=== PATIENT | female | born 1965 | race Caucasian/White ===

== ENCOUNTER 2018-10-28 12:16 | Emergency (ER) | payer MEDICAID ==
[2018-10-28 12:36] VITALS: BMI 35.3
[2018-10-28 12:39] VITALS: RESP 20; O2SAT 97
[2018-10-28 14:17] LABS: BASO % 0.8 % (0.0-2.0); EOS # 0.1 K/uL (0.0-0.7); EOS % 1.5 % (0.0-4.0); HEMOGLOBIN 12.7 g/dL (11.0-16.0); LYMPH # 1.7 K/uL (1.0-4.3); LYMPH % 31.4 % (20.0-40.0); MEAN CELL VOLUME 91.9 fL (81.0-99.0); MEAN CORPUSCULAR HEMOGLOBIN 30.3 pg (27.0-31.0); MEAN PLATELET VOLUME 9.7 fL (7.2-11.7); MONO # 0.3 K/uL (0.0-0.8); MONO % 5.3 % (0.0-10.0); NEUT # 3.3 K/uL (1.8-7.0); NRBC % 0.1 % (0.0-2.0); RBC 4.18 Mil/uL (3.80-5.20); RED CELL DISTRIBUTION WIDTH 14.8 % (11.5-14.5); WHITE BLOOD COUNT 5.5 K/uL (4.8-10.8)
[2018-10-28 14:24] LABS: HCG,QUALITATIVE URINE NEGATIVE (NEGATIVE); SQUAMOUS EPITHIAL 2 /hpf (0-5); URINE BILIRUBIN NEGATIVE (NEGATIVE); URINE BLOOD 3+ (NEGATIVE); URINE CLARITY Hazy (Clear); URINE COLOR Amber (YELLOW); URINE GLUCOSE (UA) NORMAL (Normal); URINE LEUKOCYTE ESTERASE NEG Leu/uL (Negative); URINE PROTEIN 2+ mg/dL (NEGATIVE); URINE UROBILINOGEN NORMAL mg/dL (0.2-1.0)
[2018-10-28 14:31] LABS: ALB/GLOB RATIO 1.4 (1.0-2.1); ALBUMIN 4.6 g/dL (3.5-5.0); ALT/SGPT 17 U/L (9-52); AST/SGOT 23 U/L (14-36); BLOOD UREA NITROGEN 17 mg/dL (7-17); CALCIUM 9.1 mg/dl (8.6-10.4); GFR NON-AFRICAN AMERICAN > 60; LIPASE 32 U/L (23-300)
--- NOTE | 2018-10-28 15:25 | C.PDOC ---
History Of Present Illness 52 y/o F c PMHx fibroids p/w vaginal bleeding x 4 days. Changing pad every 2-3 hours. Denies palpitations, lightheadedness, chest pain, dyspnea. Had US 2 years ago which showed fibroids but never followed up with OBGYN. Time Seen by Provider: 10/28/18 13:26 Chief Complaint (Nursing): Female Genitourinary Past Medical History Vital Signs: Last Vital Signs Temp 98.1 F 10/28/18 12:36 Pulse 89 10/28/18 12:36 Resp 20 10/28/18 12:36 BP 126/84 10/28/18 12:36 Pulse Ox 97 10/28/18 12:36 Family History: States: No Known Family Hx - Social History Hx Alcohol Use: No Hx Substance Use: No - Immunization History Hx Tetanus Toxoid Vaccination: No Hx Influenza Vaccination: No Hx Pneumococcal Vaccination: No Review Of Systems Except As Marked, All Systems Reviewed And Found Negative. Cardiovascular: Negative for: Chest Pain Respiratory: Negative for: Shortness of Breath Physical Exam - Physical Exam Appears: No Acute Distress Skin: Normal Color Head: Atraumatic, Normacephalic Eye(s): bilateral: PERRL Oral Mucosa: Moist Neck: Supple Cardiovascular: Rhythm Regular Respiratory: Normal Breath Sounds, No Accessory Muscle Use Gastrointestinal/Abdominal: Soft, No Tenderness Back: No CVA Tenderness Extremity: No Tenderness Pulses: Left Radial: Normal, Right Radial: Normal Neurological/Psych: Normal Speech, Normal Cognition ED Course And Treatment - Laboratory Results Result Diagrams: 10/28/18 14:14 10/28/18 14:14 Lab Results: Total Bilirubin 0.4 mg/dL (0.2-1.3) 10/28/18 14:14 AST 23 U/L (14-36) 10/28/18 14:14 ALT 17 U/L (9-52) 10/28/18 14:14 Alkaline Phosphatase 69 U/L (38-126) 10/28/18 14:14 Total Protein 7.9 g/dL (6.3-8.3) 10/28/18 14:14 Albumin 4.6 g/dL (3.5-5.0) 10/28/18 14:14 Globulin 3.3 gm/dL (2.2-3.9) 10/28/18 14:14 Albumin/Globulin Ratio 1.4 (1.0-2.1) 10/28/18 14:14 Lipase 32 U/L (23-300) 10/28/18 14:14 Urine Color Amanda (YELLOW) 10/28/18 14:14 Urine Clarity Hazy (Clear) 10/28/18 14:14 Urine pH 5.0 (5.0-8.0) 10/28/18 14:14 Ur Specific Cartwright 1.024 (1.003-1.030) 10/28/18 14:14 Urine Protein 2+ mg/dL (NEGATIVE) H 10/28/18 14:14 Urine Glucose (UA) Normal mg/dL (Normal) 10/28/18 14:14 Urine Ketones Negative mg/dL (NEGATIVE) 10/28/18 14:14 Urine Blood 3+ (NEGATIVE) H 10/28/18 14:14 Urine Nitrate Negative (NEGATIVE) 10/28/18 14:14 Urine Bilirubin Negative (NEGATIVE) 10/28/18 14:14 Urine Urobilinogen Normal mg/dL (0.2-1.0) 10/28/18 14:14 Ur Leukocyte Esterase Neg Joana/uL (Negative) 10/28/18 14:14 Urine WBC (Auto) 19 /hpf (0-5) H 10/28/18 14:14 Urine RBC (Auto) 6844 /hpf (0-3) H 10/28/18 14:14 Ur Squamous Epith Cells 2 /hpf (0-5) 10/28/18 14:14 Urine HCG, Qual Negative (NEGATIVE) 10/28/18 14:14 Urine HCG, Qual Negative (NEGATIVE) 10/28/18 14:14 O2 Sat by Pulse Oximetry: 97 Medical Decision Making Medical Decision Making: Hb normal. Hemodynamically stable. Will discharge, f/u OBGYN, return to ED for worsening pain, lightheadedness, palpitations, dyspnea, or any other problem. Disposition - Disposition Referrals: Jennifer Villegas DO [Staff Provider] - Disposition: HOME/ ROUTINE Disposition Time: 17:09 Condition: STABLE Additional Instructions: FINDINGS: UTERUS: Measures 12.3 x 7.0 x 7.6 cm. Anteverted. 1.6 x 1.2 x 1.7 cm anterior mid uterine fibroid and 2.7 x 2.1 x 2.7 cm subserosal fundal fibroid. ENDOMETRIUM: Measures 7 mm in diameter. CERVIX: Cervix length measures approximately 3.7 cm. RIGHT OVARY: Measures 2.6 x 1.6 x 2.8 cm. Blood flow is demonstrated. 1.6 x 1.5 x 1.8 complex follicle/cyst. LEFT OVARY: Not visualized. FREE FLUID: No significant free fluid noted. OTHER FINDINGS: None. IMPRESSION: Uterine fibroids. 1.6 x 1.5 x 1.8 complex follicle/cyst. Six week ultrasound follow-up may be considered. The left ovary is not visualized. Instructions: Ovarian Cysts, Uterine Fibroids Forms: [employer] ([place]) - Clinical Impression Clinical Impression: Ovarian cyst, Fibroids
[2018-10-28 15:52] VITALS: BP 115/75; PULSE 72; TEMP 98.2
--- NOTE | 2018-10-28 17:12 | US ---
Date of service: 10/28/2018 HISTORY: vaginal bleeding R adnexal pn, r/o cyst vs torsion COMPARISON: None available. TECHNIQUE: Real-time transabdominal pelvic ultrasound was performed. In addition a transvaginal pelvic ultrasound was necessary to better depict pelvic anatomy. FINDINGS: UTERUS: Measures 12.3 x 7.0 x 7.6 cm. Anteverted. 1.6 x 1.2 x 1.7 cm anterior mid uterine fibroid and 2.7 x 2.1 x 2.7 cm subserosal fundal fibroid. ENDOMETRIUM: Measures 7 mm in diameter. CERVIX: Cervix length measures approximately 3.7 cm. RIGHT OVARY: Measures 2.6 x 1.6 x 2.8 cm. Blood flow is demonstrated. 1.6 x 1.5 x 1.8 complex follicle/cyst. LEFT OVARY: Not visualized. FREE FLUID: No significant free fluid noted. OTHER FINDINGS: None. IMPRESSION: Uterine fibroids. 1.6 x 1.5 x 1.8 complex follicle/cyst. Six week ultrasound follow-up may be considered. The left ovary is not visualized.
== END 2018-10-28 17:58 | disposition home or self-care (01) ==
LOC: C.ER 12:16
DX: N83.209 Unspecified ovarian cyst, unspecified side (principal); D25.9 Leiomyoma of uterus, unspecified